=== PATIENT | female | born 1970 | race Caucasian/White ===

== ENCOUNTER → 2022-07-21 12:15 | Outpatient (BNVA) | payer OTHER, SELFPAY | PROVIDERS: Visit Provider Internal Medicine Rheumatology | DX: Z79.899 Other long term (current) drug therapy (principal); M19.90 Unspecified osteoarthritis, unspecified site; R76.8 Other specified abnormal immunological findings in serum; Z71.85 Encounter for immunization safety counseling; Z11.59 Encounter for screening for other viral diseases; R60.0 Localized edema | CPT/HCPCS: 36415; 81001; 82306; 82570; 84156; 85025; 85651; 86140; 86160; 86162; 86200; 86235; 86255; 86376; 86480; 86704; 86803; 87340 ==

== ENCOUNTER 2022-07-30 11:50 | Outpatient (CLI) | payer OTHER, SELFPAY ==
--- NOTE | 2022-07-30 12:14 | XRR_ITS ---
PROCEDURE INFORMATION: Exam: XR Left Knee Exam date and time: 07/30/2022 12:15 PM Age: 51 years old Clinical indication: Pain; Knee; Left; Additional info: Z79.899 - other manager long term care (current) drug therapy TECHNIQUE: Imaging protocol: Radiologic exam of the left knee. Views: 3 views. COMPARISON: No relevant prior studies available. FINDINGS: Bones/joints: Osseous structures of the knee normal. No fracture. No joint effusion. Soft tissues unremarkable. Soft tissues: See Bones/joints finding. XR/XR knee LT 3V* [id number] IMPRESSION: Normal knee.
--- NOTE | 2022-07-30 12:14 | XRR_ITS ---
PROCEDURE INFORMATION: Exam: XR Right Knee Exam date and time: 07/30/2022 12:20 PM Age: 51 years old Clinical indication: Pain; Knee; Right; Additional info: Z79.899 - other alf (current) drug therapy TECHNIQUE: Imaging protocol: Radiologic exam of the right knee. Views: 3 views. COMPARISON: No relevant prior studies available. FINDINGS: Bones/joints: Osseous structures of the knee normal. No fracture. No joint effusion. Soft tissues unremarkable. Subtle bony exostosis proximal tibial metaphysis medially likely small osteochondroma. Soft tissues: See Bones/joints finding. XR/XR knee RT 3V* [id number] IMPRESSION: 1. Normal knee. No acute process. 2. Subtle bony exostosis proximal tibial metaphysis medially likely small osteochondroma.
[2022-07-30 12:55] LABS: Creatine Phosphokinase 133 U/L (26-192)
[2022-08-01 12:04] LABS: Aldolase 7.1 U/L (< OR = 8.1)
== END 2022-07-30 11:51 | disposition home or self-care (01) ==
PROVIDERS: Visit Provider Internal Medicine Rheumatology
DX: M62.81 Muscle weakness (generalized) (principal); R76.8 Other specified abnormal immunological findings in serum; Z79.899 Other long term (current) drug therapy
CPT/HCPCS: 73562; 82085; 82550

== ENCOUNTER 2022-09-28 14:15 | Outpatient (CLI) | payer OTHER, SELFPAY ==
[2022-09-28 15:52] LABS: Urine Creatinine 247 mg/dL (28-217); Urine Protein Random 14 mg/dL
[2022-09-28 15:55] LABS: Albumin Level 4.2 g/dL (3.5-5.2); NT Pro B Type Natriuretic Pept 36 pg/mL (0-125); Total Protein 6.2 g/dL (6.6-8.7)
== END 2022-09-28 14:16 | disposition home or self-care (01) ==
PROVIDERS: PCP Nurse Practitioner Family; Visit Provider Internal Medicine Rheumatology
DX: R60.0 Localized edema (principal); R76.8 Other specified abnormal immunological findings in serum; Z79.899 Other long term (current) drug therapy
CPT/HCPCS: 36415; 82040; 82570; 83880; 84155; 84156

== ENCOUNTER 2022-10-19 13:21 | Outpatient (CLI) | payer OTHER, SELFPAY ==
--- NOTE | 2022-10-19 13:47 | USCV_ITS ---
Yi Lui Age: 52 Gender: F : 1970 Exam Date: 10/19/2022 14:01 Ordering Phys: Pako Woods MD Technologist: CT [place] [facility] [place] Indication: EDEMA PROCEDURES: Venous duplex imaging was performed in only the left lower extremity. On the right side, the common femoral, superficial femoral, profunda femoral, popliteal, posterior tibial, greater saphenous veins and the peroneal trunk were identified and interrogated in the standard fashion. FINDINGS: Normal 2-D Doppler and augmentation and compressibility throughout the lower extremity venous structures. Additional imaging through the proximal calf veins also reveals no thrombus. Limited evaluation of the greater saphenous vein is patent with no thrombus. CONCLUSIONS No DVT left lower extremity. Dr. Ese Romano DO (Electronically Signed) Final Date: 19 Oct 2022 16:05 S
[2022-10-19 15:20] LABS: Basophils # 0.1 10^3/uL (0.0-0.1); Basophils % 0.7 %; Eosinophils # 0.2 10^3/uL (0.0-0.8); Eosinophils % 2.4 %; Hematocrit 41.4 % (37.0-47.0); Hemoglobin 13.9 g/dL (11.5-15.3); Lymphocytes # 2.5 10^3/uL (0.8-4.8); Lymphocytes % 34.6 %; Mean Corpuscular HGB Conc 33.6 g/dL (30.0-36.0); Mean Corpuscular Hemoglobin 31.7 pg (28.0-34.0); Mean Corpuscular Volume 94.3 fl (81-99); Mean Platelet Volume 10.1 fL (7.4-10.4); Monocytes # 0.6 10^3/uL (0.2-0.9); Neutrophils # 3.84 10^3/uL (1.8-7.7); Neutrophils % 54.2 %; Nucleated Red Blood Cells % 0 %; Platelet Count 299 10^3/cmm (130-400); Red Blood Count 4.39 10^6/uL (4.1-5.3); Red Cell Distribution Width 14.6 % (12.1-15.1); White Blood Count 7.1 10^3/uL (4.0-10.0)
== END 2022-10-19 13:22 | disposition home or self-care (01) ==
PROVIDERS: PCP Nurse Practitioner Family; Visit Provider Internal Medicine Rheumatology
DX: R60.0 Localized edema (principal); Z79.899 Other long term (current) drug therapy
CPT/HCPCS: 36415; 85025; 93971

== ENCOUNTER 2022-10-25 14:47 | Outpatient (CLI) | payer OTHER, SELFPAY ==
--- NOTE | 2022-10-25 15:01 | MM_ITS ---
WS: [id number] BILATERAL 3D TOMOSYNTHESIS DIGITAL SCREENING MAMMOGRAPHY WITH CAD CLINICAL INFORMATION: SCREENING HISTORY: Screening mammogram. Chronic bilateral breast lumps with pain and soreness. COMPARISON: None TECHNIQUE: Bilateral CC and MLO views. FINDINGS: Scattered fibroglandular densities bilaterally. No suspicious focal mass, asymmetry, calcifications, or architectural distortion. No evidence of malignancy. MM/[place] [id number] IMPRESSION: BI-RADS: 1-Negative FOLLOW UP: 1 Year Follow-up Recommend return to annual screening mammography.
== END 2022-10-25 14:48 | disposition home or self-care (01) ==
PROVIDERS: PCP Nurse Practitioner Family; Visit Provider Nurse Practitioner Family
DX: Z12.31 Encounter for screening mammogram for malignant neoplasm of breast (principal)
CPT/HCPCS: 77063; 77067

== ENCOUNTER 2022-12-14 06:29 | Day surgery (SDC) | payer OTHER, SELFPAY ==
[2022-12-13 08:58] VITALS: BMI 41.2
[2022-12-14 06:48] VITALS: BP 131/88; PULSE 86; RESP 18; TEMP 36.1; O2SAT 96
[2022-12-14] MEDS: sodium chloride 0.9% 1,000 ML 30 ML IV (07:10)
--- NOTE | 2022-12-14 08:01 | PM.HP ---
Providers/Chief Complaint Primary Care Provider: Tricia Ramos Chief Complaint: Z12.11 History of Present Illness Yi Lui is a 52 year old female who is here for her second colonoscopy. Her mother was just diagnosed with colon cancer this year. She denies any nausea, emesis, diarrhea, constipation, hematochezia and/or melena. Her last colonoscopy was greater than 5 years ago. No history of colon polyps. Medications/Allergies Home Medications Medication Instructions Recorded Confirmed Last Taken Type albuterol sulfate 90 mcg/actuation 1 inh inhalation QID PRN Shortness 07/21/22 12/14/22 11/23/22 History aerosol inhaler Of Breath atorvastatin 80 mg tablet 80 mg PO DAILY 07/21/22 12/14/22 12/13/22 History clonazepam 0.5 mg tablet (Klonopin) 0.5 mg PO BID PRN Anxiety 07/21/22 12/14/22 12/07/22 History duloxetine 20 mg capsule,delayed 20 mg PO BID 07/21/22 12/14/22 12/14/22 History release (Cymbalta) tramadol 50 mg tablet 50 mg PO BID PRN Pain 07/21/22 12/14/22 12/13/22 History trazodone 100 mg tablet 200 mg PO .HS 07/21/22 12/14/22 12/13/22 History gabapentin 300 mg capsule 300 mg PO TID #90 caps 11/28/22 12/14/22 12/14/22 Rx cyclobenzaprine 5 mg tablet 5 mg PO TID PRN muscle spasms 12/13/22 12/14/22 12/12/22 History prednisone 20 mg tablet 20 mg PO DAILY 12/13/22 12/14/22 12/14/22 History furosemide 40 mg tablet 60 mg PO DAILY 12/14/22 12/14/22 12/13/22 History Allergies Allergy/AdvReac Type Severity Reaction Status Date / Time paroxetine [From Paxil] Allergy Intermediate rash Verified 12/14/22 06:43 PFSH Acute PFSH: Medical History (Updated 12/14/22 @ 08:02 by Waqar Asif DO) Bilateral lower extremity edema Carpal tunnel syndrome Depression with anxiety Family history of colon cancer High risk medication use Hypercholesteremia Immunization counseling Inflammatory arthritis Joint pain Neuropathy Positive JANNA (antinuclear antibody) Respiratory abnormality using inhalers prn since covid Surgical History History of cholecystectomy History of hysterectomy History of shoulder surgery left mass benign History of tonsillectomy and adenoidectomy Family History Other CAD (coronary artery disease) Cancer Diabetes Family history of premature coronary artery disease Hypertension Lung disease Lupus Rheumatoid arthritis Stroke Denies family history of Hyperlipidemia Chronic kidney disease (CKD) Social History Smoking and tobacco status: current every day smoker Alcohol intake: never Vitals/I&O/Wt Last Vital Signs Temp 97.0 F L 12/14/22 06:48 Pulse 86 12/14/22 06:48 Resp 18 12/14/22 06:48 BP 131/88 12/14/22 06:48 Pulse Ox 96 12/14/22 06:48 O2 Del Method Room Air 12/14/22 06:48 Weight last 48 hrs Weight 248 lb A&P Assessment and plan (1) Family history of colon cancer: (2) Colon cancer screening: Plan Screening colonoscopy The risks and benefits of the procedure, including bleeding, infection, intestinal perforation requiring surgery, missed lesion were explained to the patient. The patient is understanding of the risks and wishes to proceed. Attestations Medical Necessity Statement*: Home Coding Level of Care Code Acute Code for Chg Fwd Diagnoses Family history of colon cancer Z80.0 Colon cancer screening Z12.11
[2022-12-14 08:20] VITALS: BP 121/75; RESP 18; TEMP 36.3; O2SAT 95
[2022-12-14 08:31] VITALS: BP 108/79; PULSE 84; RESP 18; TEMP 36.2; O2SAT 96
--- NOTE | 2022-12-14 08:35 | ANE.PACU2 ---
Inpatient post-anesthesia follow up: Airway intact: Yes Vital signs: Temperature 97.2 F Pulse Rate 84 Respiratory Rate 18 Blood Pressure 108/79 Pulse Oximetry 96 Oxygen Delivery Me thod Room Air Oxygen Flow Rate Fraction of Inspir ed Oxygen Hydration adequate: Yes Nausea and vomiting: Yes Pain level: 1 Mental status: Baseline
== END 2022-12-14 08:58 | disposition home or self-care (01) ==
PROVIDERS: PCP Nurse Practitioner Family; Visit Provider Surgery
PROC: 0DJD8ZZ Inspection of Lower Intestinal Tract, Via Natural or Artificial Opening Endoscopic (ICD-10-PCS; CPT 45330; principal; 2022-12-14 07:30)
DX: Z12.11 Encounter for screening for malignant neoplasm of colon (principal); Z80.0 Family history of malignant neoplasm of digestive organs; Z79.52 Long term (current) use of systemic steroids; F17.210 Nicotine dependence, cigarettes, uncomplicated; K64.8 Other hemorrhoids
CPT/HCPCS: 45330; J2704; J7030

== ENCOUNTER 2023-01-06 06:21 | Day surgery (SDC) | payer OTHER, SELFPAY ==
[2023-01-04 11:31] VITALS: BMI 39.6
[2023-01-06 06:35] VITALS: BP 135/78; PULSE 93; RESP 20; TEMP 36.3; O2SAT 96
[2023-01-06] MEDS: sodium chloride 0.9% 1,000 ML 30 ML IV (06:40)
--- NOTE | 2023-01-06 06:49 | ANES.PREANE2 ---
Pre-Anesthetic Assessment Height/Weight: Height 1.65 m Weight 107.955 kg Temp Pulse Resp BP Pulse Ox O2 Del Method 97.4 F L 93 20 H 135/78 96 Room Air 01/06/23 06:35 01/06/23 06:35 01/06/23 06:35 01/06/23 06:35 01/06/23 06:35 01/06/23 06:35 Preop Diagnosis: screening Operation Date: 01/06/23 07:30 Proposed Procedures p Colonoscopy 94349,Z12.11(Not Applicable) - Waqar Asif DO Familial anesthetic complications: none Was Beta Jaya taken within 24 hours: N/A Last intake: Intake Last Liquid Date 01/05/23 Last Liquid Time 23:45 Last Solid Date 01/04/23 Last Solid Time 20:00 Social Tobacco and No alcohol 0.5 ppd x37 yrs pack(s) per day Exam alert, oriented x 3 and clear to auscultation bilaterally Airway Submandibular: within normal limits Mallampati: Class III Dentition: false (upper and lower plate) Pulmonary Asthma (rare inhaler use) None reported Hepatic None reported GI None reported Metabolic Hyperlipidemia and Morbid Obesity lasix for chronic cellulitis Musc/skel None reported Neuropsych Anxiety Anesthetic Plan ASA status: 3 Anesthesia: MAC Medications/Allergies Home Medications Medication Instructions Recorded Confirmed Last Taken Type albuterol sulfate 90 mcg/actuation 1 inh inhalation QID PRN Shortness 07/21/22 01/04/23 11/23/22 History aerosol inhaler Of Breath atorvastatin 80 mg tablet 80 mg PO DAILY 07/21/22 01/06/23 01/05/23 History clonazepam 0.5 mg tablet (Klonopin) 0.5 mg PO BID PRN Anxiety 07/21/22 01/04/23 12/07/22 History duloxetine 20 mg capsule,delayed 40 mg PO BID 07/21/22 01/06/23 01/06/23 History release (Cymbalta) tramadol 50 mg tablet 50 mg PO BID PRN Pain 07/21/22 01/04/23 01/03/23 History trazodone 100 mg tablet 200 mg PO .HS 07/21/22 01/06/23 01/05/23 History cyclobenzaprine 5 mg tablet 5 mg PO TID PRN muscle spasms 12/13/22 01/06/23 01/05/23 History furosemide 40 mg tablet 60 mg PO DAILY 12/14/22 01/06/23 01/05/23 History gabapentin 300 mg capsule 900 mg PO TID 01/04/23 01/06/23 01/06/23 History Allergies Allergy/AdvReac Type Severity Reaction Status Date / Time paroxetine [From Paxil] Allergy Intermediate rash Verified 01/04/23 11:27 Current Medications Generic Name Dose Route Start Last Admin Trade Name Freq PRN Reason Stop Dose Admin Sodium Chloride 1,000 mls @ 30 mls/hr 01/06/23 06:30 01/06/23 06:40 Sodium Chloride 0.9% IV 01/07/23 06:29 30 mls/hr .Q24H PAZ Administration PFSH Anesthesia Medical History (Updated 12/14/22 @ 08:02 by Waqar Asif DO) Bilateral lower extremity edema Carpal tunnel syndrome Depression with anxiety Family history of colon cancer High risk medication use Hypercholesteremia Immunization counseling Inflammatory arthritis Joint pain Neuropathy Positive JANNA (antinuclear antibody) Respiratory abnormality using inhalers prn since covid Surgical History History of cholecystectomy History of hysterectomy History of shoulder surgery left mass benign History of tonsillectomy and adenoidectomy Family History Other CAD (coronary artery disease) Cancer Diabetes Family history of premature coronary artery disease Hypertension Lung disease Lupus Rheumatoid arthritis Stroke Denies family history of Hyperlipidemia Chronic kidney disease (CKD) Social History Smoking and tobacco status: current every day smoker Alcohol intake: never Data Anesthesia Cardiac Studies: No Data to Display
--- NOTE | 2023-01-06 06:57 | W.PM.OPSUD ---
Surgery/Procedure H&P Update DATE OF PROCEDURE: January 06, 2023 DATE H&P PERFORMED: 12/14/22 H&P UPDATE INFORMATION: I have reviewed H&P completed within last 30 days, I have examined patient prior to procedure and No changes to prior documentation PREOP DIAGNOSIS: screening PLANNED PROCEDURE: Operation Date: 01/06/23 07:30 Proposed Procedures p Colonoscopy 31897,Z12.11(Not Applicable) - Waqar Asif, DO
[2023-01-06 08:39] VITALS: BP 100/69; PULSE 99; RESP 20; TEMP 36.1; O2SAT 96
[2023-01-06 09:00] VITALS: BP 122/69; PULSE 101; RESP 18; O2SAT 90
--- NOTE | 2023-01-06 13:05 | ANE.PACU2 ---
Inpatient post-anesthesia follow up: Airway intact: Yes Vital signs: Temperature 97.0 F Pulse Rate 101 Respiratory Rate 18 Blood Pressure 122/69 Pulse Oximetry 90 Oxygen Delivery Me thod Room Air Oxygen Flow Rate Fraction of Inspir ed Oxygen Hydration adequate: Yes Nausea and vomiting: No Pain level: 2 Mental status: Baseline
== END 2023-01-06 09:20 | disposition home or self-care (01) ==
PROVIDERS: PCP Nurse Practitioner Family; Visit Provider Surgery
PROC: 0DJD8ZZ Inspection of Lower Intestinal Tract, Via Natural or Artificial Opening Endoscopic (ICD-10-PCS; CPT 45378; principal; 2023-01-06 07:30)
DX: Z80.0 Family history of malignant neoplasm of digestive organs (principal); K57.30 Diverticulosis of large intestine without perforation or abscess without bleeding; Z12.11 Encounter for screening for malignant neoplasm of colon; E78.5 Hyperlipidemia, unspecified; E66.01 Morbid (severe) obesity due to excess calories; Z68.39 Body mass index [BMI] 39.0-39.9, adult; F17.200 Nicotine dependence, unspecified, uncomplicated; D12.5 Benign neoplasm of sigmoid colon
CPT/HCPCS: 45385; 88305; J2704; J7030